=== PATIENT | male | born 2000 | race American Indian/Alaskan Native ===

== ENCOUNTER 2020-10-09 13:36 | Emergency (ER) | payer SELFPAY ==
[2020-10-09 13:42] VITALS: BP 131/79
--- NOTE | 2020-10-09 14:19 | Emergency Department Report ---
ED Eye Problem HPI - General Chief complaint: Eye Problems Stated complaint: PINK EYE; POSSIBLE UTI Time Seen by Provider: 10/09/20 14:15 Source: patient Mode of arrival: Ambulatory Limitations: No Limitations - History of Present Illness Initial comments: Patient is a 20-year-old male presents emergency room with complaints of possible pinkeye that began 2 days ago. He has associated left eye irritation, mucus drainage, crusting, eyelash matting. He denies anything getting into the eye. He denies any vision changes. He denies anyone else with the same symptoms. He denies any contact lens use. He has a past medical history of a heart surgery in childhood which she reports was secondary to a murmur. No allergies to medications. - Related Data Previous Rx's Medication Instructions Recorded Last Taken Type Erythromycin [Erythromycin Ophth 1 applic OS QID 7 Days #1 tube 10/09/20 Unknown Rx Oint] Allergies Allergy/AdvReac Type Severity Reaction Status Date / Time No Known Allergies Allergy Unverified 10/09/20 13:38 ED Review of Systems ROS: Stated complaint: PINK EYE; POSSIBLE UTI Other details as noted in HPI Comment: All other systems reviewed and negative ED Past Medical Hx - Past Medical History Previous Medical History?: No - Surgical History Past Surgical History?: Yes Additional Surgical History: heart surgery as a child - Medications Home Medications: Home Medications Medication Instructions Recorded Confirmed Last Taken Type Erythromycin [Erythromycin Ophth 1 applic OS QID 7 Days #1 tube 10/09/20 Unknown Rx Oint] ED Physical Exam - General Limitations: No Limitations General appearance: alert, in no apparent distress - Head Head exam: Present: atraumatic, normocephalic - Eye Eye exam: Present: PERRL, EOMI, conjunctival injection (left conjunctival injection with mucus drainage present). Absent: periorbital swelling, periorbital tenderness Pupils: Present: normal accommodation - ENT ENT exam: Present: mucous membranes moist - Respiratory Respiratory exam: Absent: respiratory distress, accessory muscle use - Neurological Exam Neurological exam: Present: alert, oriented X3 - Psychiatric Psychiatric exam: Present: normal affect, normal mood - Skin Skin exam: Present: warm, dry, intact ED Course Vital Signs 10/09/20 13:38 Temperature 98.2 F Pulse Rate 89 Respiratory 16 Rate Blood Pressure 131/79 [Right] O2 Sat by Pulse 100 Oximetry ED Medical Decision Making - Medical Decision Making Patient is a 20-year-old male presents emergency room with complaints of possible pinkeye that began 2 days ago. He has associated left eye irritation, mucus drainage, crusting, eyelash matting. He denies anything getting into the eye. He denies any vision changes. He denies anyone else with the same symptoms. He denies any contact lens use. He has a past medical history of a heart surgery in childhood which she reports was secondary to a murmur. No allergies to medications. VSS. on exam: left conjunctival injection with mucus drainage present. Examination consistent with conjunctivitis. No signs of hordeolum, blepharitis, preseptal orbital cellulitis. Patient given prescription for erythromycin ophthalmic ointment. Advised patient Please use medication as prescribed. Wash your hands frequently. Wash your bed sheets and pillowcases. Avoid rubbing the eye. Follow-up with a primary care doctor. Follow-up with spiritual counselor. Return to emergency room for any new or worsening symptoms. Critical care attestation.: If time is entered above; I have spent that time in minutes in the direct care of this critically ill patient, excluding procedure time. ED Disposition Clinical Impression: Conjunctivitis Qualifiers: Conjunctivitis type: acute Acute conjunctivitis type: unspecified Laterality: left Qualified Code(s): H10.32 - Unspecified acute conjunctivitis, left eye Disposition: TO HOME OR SELFCARE Is pt being admited?: No Does the pt Need Aspirin: No Condition: Stable Instructions: Bacterial Conjunctivitis, Adult, How to Use Eye Drops and Eye Ointments Additional Instructions: Please use medication as prescribed. Wash your hands frequently. Wash your bed sheets and pillowcases. Avoid rubbing the eye. Follow-up with a primary care doctor. Follow-up with spiritual counselor. Return to emergency room for any new or worsening symptoms. Prescriptions: Erythromycin [Erythromycin Ophth Oint] 1 applic OS QID 7 Days #1 tube Referrals: CRYSTAL CARRILLO MD [Primary Care Provider] - 3-5 Days GAMA DEAN MD [Staff Physician] - 3-5 Days [facility] [Provider Group] - 3-[address] [facility] [Provider Group] - 3-5 Days Time of Disposition: 14:18 Print Language: JAMAICAN
== END 2020-10-09 14:32 | disposition home or self-care (01) ==
LOC: ED 13:36
DX: H10.9 Unspecified conjunctivitis (principal); Z79.899 Other long term (current) drug therapy
CPT/HCPCS: 99282